=== PATIENT | female | born 1980 | race Caucasian/White ===

== ENCOUNTER 2018-06-19 08:13 | Emergency (ER) | payer BC, SELFPAY ==
[2018-06-19 08:19] VITALS: BP 145/90; PULSE 67; RESP 14; TEMP 36.8; O2SAT 100
--- NOTE | 2018-06-19 08:33 | W.ED.GENAD ---
Discharge Plan Disposition Patient Disposition: HOME Condition: Stable Discharge Details Chief Complaint: EarProblem Clinical Impression: Otitis media, Sinus infection Primary Care Provider: iMssy Childress ED Provider: Carla Dillon Home Meds and New Rx's Prescriptions: New azithromycin [Zithromax Z-Augusto] 250 mg tablet See Rx Instructions .ROUTE .COMPLEX Qty: 6 RF: 0 Discharge Instructions Instructions: Sinusitis (ED), Otitis Media (ED) Additional Instructions: Alternate Tylenol and Motrin as needed and directed for pain. Take the antibiotics until finished. Drink plenty of fluids and get plenty of rest. Follow-up with your primary care doctor in 1 week for reevaluation. Return immediately to the emergency department any worsening or new concerning symptoms. Discharge Data Discharge Date/Time-TO BE ENTERED AT DEPARTURE: 06/19/18 09:07 Discharge Physician: Carla Dillon Medical Decision Making 37-year-old female who presents with nasal congestion, nasal discharge, sinus congestion and pain for the past week, and right ear pain since last night. Main complaint at this time is right ear pain. She recently had a cough but this is resolving and she denies any chest pain, shortness of breath, fever, vomiting or diarrhea. Blood pressure mildly hypertensive, otherwise vitals within normal limits. Afebrile. Patient appears nontoxic and in no acute distress. Her right TM is erythematous and dull. She has mild bilateral frontal sinus tenderness otherwise remainder of ENT exam within normal limits. No submandibular swelling, trismus, drooling. Lungs clear to auscultation. Patient is allergic to penicillin which causes hives and throat swelling. Urine is negative. Will treat with Zithromax to cover for mainly the ear and possibly sinus. Patient instructed to follow with primary care doctor for reevaluation and return here if worse. Medical Records Medical records reviewed: Yes I reviewed the patient's medical records. Lab Data Lab results reviewed: Yes I reviewed the patient's lab results. Urine test negative HPI General Mode of arrival: ambulatory. Date/Time Provider Initiated Documentation: 06/19/18 08:24. Limitations to Documentation: no limitations. Information obtained by: patient. HPI Narrative: Patient is a 37-year-old female presents the ED with complaint of right ear pain since last night. Patient states her symptoms started with headache, fatigue, nasal congestion, facial pain and nasal discharge 1 week ago but states this is slightly improving and now has mainly R ear pain. She also had a cough with chest congestion but this is now improving with Robitussin. She denies known fever, body aches, vomiting, diarrhea, chest pain, shortness of breath. She took 2 Tylenol this morning for pain with some relief. She did not receive a flu shot this year. Related Data Home Medications Medication Instructions Recorded Confirmed azithromycin [Zithromax Z-Augusto] See Rx Instructions .ROUTE 06/19/18 .COMPLEX #6 tab Previous Rx's Medication Instructions Recorded azithromycin [Zithromax Z-Augusto] See Rx Instructions .ROUTE 06/19/18 .COMPLEX #6 tab Allergies Allergy/AdvReac Type Severity Reaction Status Date / Time orange juice AdvReac Severe Hives Unverified 06/19/18 08:21 Penicillins AdvReac Severe Hives Unverified 06/19/18 08:21 acetaminophen AdvReac Mild vomits Unverified 06/19/18 08:21 [From Tylenol-Codeine #3] codeine phosphate AdvReac Mild vomits Unverified 06/19/18 08:21 [From Tylenol-Codeine #3] General Stated Complaint: EarProblem VADIM: 4 Review of Systems Review of Systems All systems reviewed & are unremarkable except as noted in HPI and below Constitutional Reports as per HPI, Denies chills and Denies fever(s) Eyes Denies blurry vision ENT Denies dizziness, Denies ear discharge, Reports otalgia, Reports nasal congestion, Reports nasal discharge, Denies sore throat and Denies throat swelling Cardiovascular Denies chest pain and Denies dyspnea Respiratory Denies cough and Denies dyspnea Gastrointestinal Denies abdominal pain, Denies diarrhea and Denies vomiting Genitourinary Denies hematuria and Denies dysuria Musculoskeletal Denies back pain and Denies numbness Integumentary/Breasts Denies lesions and Denies rash Neurologic Denies dizziness, Denies focal weakness and Denies numbness Allergic/Immunologic Denies throat swelling [facility] Medical History No significant past medical history (Acute) Surgical History History of knee surgery (Acute) Social History Smoking and Tabacco status: Never alcohol intake: never substance use type: does not use Exam Const General: cooperative, healthy appearing and no acute distress HENMT Head: normal to inspection Ears: hearing grossly normal bilaterally, TM abnormal dull on the right and erythematous on the right and other (L TM normal to inspection) General nose exam: external nose normal Face and sinus: sinus tenderness frontal (bilateral) Mouth: oral mucosae normal Teeth and gingiva: dentition normal Throat: posterior oropharynx normal Eyes General: appearance normal, both eyes and all related structures Neck Neck: normal visual inspection Resp Effort & Inspection: normal respiratory effort and able to speak in complete sentences Auscultation: clear to auscultation bilaterally, no rales, no rhonchi and no wheezes Cardio Rate: regular rate Rhythm: regular rhythm Skin General skin exam: no rashes or lesions noted Neuro General: alert, awake and oriented x3 Motor: muscle tone normal throughout Extrem General: normal to inspection and full ROM Psych Appearance: grossly normal Affect: normal affect Course Vital Signs Temperature 98.2 F 06/19/18 08:19 Pulse 67 06/19/18 08:19 Respiratory Rate 14 06/19/18 08:19 Blood Pressure 145/90 H 06/19/18 08:19 Pulse Oximetry 100 06/19/18 08:19 Temperature 98.2 F 06/19/18 08:19 Temperature Source Skin 06/19/18 08:19 Pulse 67 06/19/18 08:19 Respiratory Rate 14 06/19/18 08:19 Respiratory Effort 06/19/18 08:23 Blood Pressure 145/90 H 06/19/18 08:19 Pulse Oximetry 100 06/19/18 08:19 Oxygen Delivery Method Room Air 06/19/18 08:19 Oxygen Flow Rate 0 06/19/18 08:19 Pain Level 8 06/19/18 08:19
--- NOTE | 2018-06-19 08:41 | ED.GENADUL_ITS ---
Discharge Plan Disposition Patient Disposition: HOME Condition: Stable Discharge Details Chief Complaint: EarProblem Clinical Impression: Otitis media, Sinus infection Primary Care Provider: Missy Childress ED Provider: Carla Dillon Home Meds and New Rx's Prescriptions: New azithromycin [Zithromax Z-Augusto] 250 mg tablet See Rx Instructions .ROUTE .COMPLEX Qty: 6 RF: 0 Discharge Instructions Instructions: Sinusitis (ED), Otitis Media (ED) Additional Instructions: Alternate Tylenol and Motrin as needed and directed for pain. Take the antibiotics until finished. Drink plenty of fluids and get plenty of rest. Follow-up with your primary care doctor in 1 week for reevaluation. Return immediately to the emergency department any worsening or new concerning symptoms. Discharge Data Discharge Date/Time-TO BE ENTERED AT DEPARTURE: 06/19/18 09:07 Discharge Physician: Carla Dillon Medical Decision Making 37-year-old female who presents with nasal congestion, nasal discharge, sinus congestion and pain for the past week, and right ear pain since last night. Main complaint at this time is right ear pain. She recently had a cough but this is resolving and she denies any chest pain, shortness of breath, fever, vomiting or diarrhea. Blood pressure mildly hypertensive, otherwise vitals within normal limits. Afebrile. Patient appears nontoxic and in no acute distress. Her right TM is erythematous and dull. She has mild bilateral frontal sinus tenderness otherwise remainder of ENT exam within normal limits. No submandibular swelling, trismus, drooling. Lungs clear to auscultation. Patient is allergic to penicillin which causes hives and throat swelling. Urine is negative. Will treat with Zithromax to cover for mainly the ear and possibly sinus. Patient instructed to follow with primary care doctor for reevaluation and return here if worse. Medical Records Medical records reviewed: Yes I reviewed the patient's medical records. Lab Data Lab results reviewed: Yes I reviewed the patient's lab results. Urine test negative HPI General Mode of arrival: ambulatory . Date/Time Provider Initiated Documentation: 06/19/18 08:24 . Limitations to Documentation: no limitations . Information obtained by: patient . HPI Narrative: Patient is a 37-year-old female presents the ED with complaint of right ear pain since last night. Patient states her symptoms started with headache, fatigue, nasal congestion, facial pain and nasal discharge 1 week ago but states this is slightly improving and now has mainly R ear pain. She also had a cough with chest congestion but this is now improving with Robitussin. She denies known fever, body aches, vomiting, diarrhea, chest pain, shortness of breath. She took 2 Tylenol this morning for pain with some relief. She did not receive a flu shot this year. Related Data Home Medications Medication Instructions Recorded Confirmed azithromycin [Zithromax Z-Augusto] See Rx Instructions .ROUTE 06/19/18 .COMPLEX #6 tab Previous Rx's Medication Instructions Recorded azithromycin [Zithromax Z-Augusto] See Rx Instructions .ROUTE 06/19/18 .COMPLEX #6 tab Allergies Allergy/AdvReac Type Severity Reaction Status Date / Time orange juice AdvReac Severe Hives Unverified 06/19/18 08:21 Penicillins AdvReac Severe Hives Unverified 06/19/18 08:21 acetaminophen AdvReac Mild vomits Unverified 06/19/18 08:21 [From Tylenol-Codeine #3] codeine phosphate AdvReac Mild vomits Unverified 06/19/18 08:21 [From Tylenol-Codeine #3] General Stated Complaint: EarProblem VADIM: 4 Review of Systems Review of Systems All systems reviewed & are unremarkable except as noted in HPI and below Constitutional Reports as per HPI, Denies chills and Denies fever(s) Eyes Denies blurry vision ENT Denies dizziness, Denies ear discharge, Reports otalgia, Reports nasal congestion, Reports nasal discharge, Denies sore throat and Denies throat swelling Cardiovascular Denies chest pain and Denies dyspnea Respiratory Denies cough and Denies dyspnea Gastrointestinal Denies abdominal pain, Denies diarrhea and Denies vomiting Genitourinary Denies hematuria and Denies dysuria Musculoskeletal Denies back pain and Denies numbness Integumentary/Breasts Denies lesions and Denies rash Neurologic Denies dizziness, Denies focal weakness and Denies numbness Allergic/Immunologic Denies throat swelling [facility] Medical History No significant past medical history (Acute) Surgical History History of knee surgery (Acute) Social History Smoking and Tabacco status: Never alcohol intake: never substance use type: does not use Exam Const General: cooperative, healthy appearing and no acute distress HENMT Head: normal to inspection Ears: hearing grossly normal bilaterally, TM abnormal dull on the right and erythematous on the right and other (L TM normal to inspection) General nose exam: external nose normal Face and sinus: sinus tenderness frontal (bilateral) Mouth: oral mucosae normal Teeth and gingiva: dentition normal Throat: posterior oropharynx normal Eyes General: appearance normal, both eyes and all related structures Neck Neck: normal visual inspection Resp Effort & Inspection: normal respiratory effort and able to speak in complete sentences Auscultation: clear to auscultation bilaterally, no rales, no rhonchi and no wheezes Cardio Rate: regular rate Rhythm: regular rhythm Skin General skin exam: no rashes or lesions noted Neuro General: alert, awake and oriented x3 Motor: muscle tone normal throughout Extrem General: normal to inspection and full ROM Psych Appearance: grossly normal Affect: normal affect Course Vital Signs Temperature 98.2 F 06/19/18 08:19 Pulse 67 06/19/18 08:19 Respiratory Rate 14 06/19/18 08:19 Blood Pressure 145/90 H 06/19/18 08:19 Pulse Oximetry 100 06/19/18 08:19 Temperature 98.2 F 06/19/18 08:19 Temperature Source Skin 06/19/18 08:19 Pulse 67 06/19/18 08:19 Respiratory Rate 14 06/19/18 08:19 Respiratory Effort 06/19/18 08:23 Blood Pressure 145/90 H 06/19/18 08:19 Pulse Oximetry 100 06/19/18 08:19 Oxygen Delivery Method Room Air 06/19/18 08:19 Oxygen Flow Rate 0 06/19/18 08:19 Pain Level 8 06/19/18 08:19
[2018-06-19 09:09] VITALS: BP 145/90; PULSE 67; RESP 14; TEMP 36.8; O2SAT 100
== END 2018-06-19 09:07 | disposition home or self-care (01) ==
PROVIDERS: Emergency Provider Physician Assistant; PCP Nurse Practitioner Family
DX: H66.91 Otitis media, unspecified, right ear (principal); J01.90 Acute sinusitis, unspecified
CPT/HCPCS: 81025; 99283

== ENCOUNTER 2021-01-27 09:26 | Outpatient (REF) | payer BC, SELFPAY ==
[2021-01-27 20:16] LABS: MCH 29.8 pg (27.0-33.0); MCHC 31.1 % (32.0-36.0); MCV 95.7 fL (80-95); MPV 11.6 fL (8.0-11.0); Platelet Count 186 10^3/uL (130-400); RDW 14.3 % (11.7-14.6); RDW-SD 50.5 fL; WBC 2.92 10^3/uL (4.4-10.8)
[2021-01-27 20:29] LABS: ALT 22 U/L (14-59); AST 21 U/L (15-37); Albumin 3.6 g/dL (3.4-5.0); Alkaline Phosphatase 114 U/L (46-116); Anion Gap 6.6 mmol/L (3-11); BUN 11 mg/dL (7-18); Bilirubin, Total 0.5 mg/dL (0.2-1.0); CO2 28.4 mmol/L (21.0-32.0); Calcium 8.9 mg/dL (8.5-10.1); Chloride 108 mmol/L (98-107); Glucose 88 mg/dL (74-106); Potassium 4.3 mmol/L (3.5-5.1); Sodium 143 mmol/L (136-145)
== END 2021-01-27 09:27 | disposition home or self-care (01) ==
LOC: NCHCN 09:26
PROVIDERS: PCP Nurse Practitioner Family; Visit Provider Nurse Practitioner Family
DX: Z00.00 Encounter for general adult medical examination without abnormal findings (principal)
CPT/HCPCS: 80053; 85027

== ENCOUNTER 2022-10-20 11:13 | Outpatient (REF) | payer SELFPAY ==
[2022-10-21 10:27] LABS: ALT 26 U/L (14-59); AST 31 U/L (15-37); Albumin 3.9 g/dL (3.4-5.0); Alkaline Phosphatase 135 U/L (46-116); Anion Gap 12.3 mmol/L (3-11); BUN 15 mg/dL (7-18); Bilirubin, Total 0.4 mg/dL (0.2-1.0); CO2 24.7 mmol/L (21.0-32.0); CREATININE 1.1 mg/dL (0.55-1.02); Chloride 102 mmol/L (98-107); Estimated GFR 64.34 (mL/min/1.73m2); Glucose 76 mg/dL (74-106); Potassium 4.1 mmol/L (3.5-5.1); Sodium 139 mmol/L (136-145)
[2022-10-21 10:28] LABS: Abs Immature Grans 0.01 10^3/uL (0.0-0.06); Absolute Basophil Count 0.05 10^3/uL (0.0-0.2); Absolute Eosinophil Count 0.17 10^3/uL (0.0-0.7); Absolute Lymphocyte Count 1.24 10^3/uL (1.2-3.4); Absolute Monocyte Count 0.29 10^3/uL (0.1-0.8); Basophils % 1.3; Eosinophils % 4.5; HCT 46.1 % (36.0-46.0); HGB 14.8 g/dL (11.2-15.7); Immature Grans % 0.3; MCH 30.5 pg (27.0-33.0); MCHC 32.1 % (32.0-36.0); MCV 95 fL (80-95); MPV 11.7 fL (8.0-11.0); Monocytes % 7.7; Neutrophils % 53.2; Platelet Count 242 10^3/uL (130-400); RBC 4.86 10^6/uL (3.93-5.22); RDW 13.8 % (11.7-14.6); RDW-SD 48.8 fL; WBC 3.76 10^3/uL (4.4-10.8)
== END 2022-10-20 11:14 | disposition home or self-care (01) ==
LOC: NCHCN 11:13
PROVIDERS: PCP Nurse Practitioner Family; Visit Provider Nurse Practitioner Family
DX: R10.13 Epigastric pain (principal)
CPT/HCPCS: 80053; 85025

== ENCOUNTER 2023-04-06 13:36 | Outpatient (REF) | payer SELFPAY ==
[2023-04-06 17:18] LABS: FREE T4 1.21 ng/dL (0.76-1.46); TSH 6.14 uIU/mL (0.36-3.74)
[2023-04-06 17:20] LABS: Hemoglobin A1C 5.3 % (<5.7)
[2023-04-06 17:41] LABS: Calculated LDL 163 mg/dL (<100); Cholesterol 266 mg/dL (<200); HDL Cholesterol 91 mg/dL (40-60); Triglyceride 62 mg/dL (<150)
== END 2023-04-06 13:37 | disposition home or self-care (01) ==
LOC: NCHCN 13:36
PROVIDERS: PCP Nurse Practitioner Family; Visit Provider Nurse Practitioner Family
DX: E04.9 Nontoxic goiter, unspecified (principal); R63.1 Polydipsia; Z13.220 Encounter for screening for lipoid disorders
CPT/HCPCS: 80061; 83036; 84439; 84443

== ENCOUNTER 2023-09-20 18:24 | Outpatient (REF) | payer BC, SELFPAY ==
--- NOTE | 2023-09-20 12:40 | PAPFT_PTH ---
PATIENT: Wendy Nava LOC: [facility]#:[id number] AGE/SX: 42/F ROOM: RE09/20/[address]: Rossana Logan : 1980 BED: DIS: 09/20/2023 SPEC #: [id number] RECD: 09/21/23 12:59 STATUS: JAG REQ #: [id number] MINDA: 09/20/23 12:[address]: Rossana Logan DEPT: [facility] [place] Cytology RECD BY: Rosemarie Melendez ENTERED: 09/21/23 12:59 SP TYPE: PAPFT LEONOR DR: Unknown,Unknown Tissues: 1 - CX/ENDOCX FOR PAP SMEARS Procedures: PAP THIN PREP/[facility] Screening HPV DNA PROBE Comments: [id number] (HPV 16 & 18/45)
== END 2023-09-20 18:25 | disposition home or self-care (01) ==
LOC: NCHCN 18:24
PROVIDERS: Visit Provider Nurse Practitioner Family
DX: Z11.51 Encounter for screening for human papillomavirus (HPV) (principal); Z01.419 Encounter for gynecological examination (general) (routine) without abnormal findings
CPT/HCPCS: 88142; 87624

== ENCOUNTER 2024-11-23 05:00 | Emergency (ER) | payer OTHER, SELFPAY ==
[2024-11-23 05:02] VITALS: BP 169/91; PULSE 66; RESP 20; TEMP 37; O2SAT 100
--- NOTE | 2024-11-23 05:15 | DI.RAD_ITS ---
Exam(s) XR LUMBAR SPINE COMPLETE EXAM: XR LUMBAR SPINE COMPLETE CLINICAL HISTORY: midline lower lumbar back pain. TECHNIQUE: 2D digital imaging was performed. COMPARISON: No exams were available for comparison FINDINGS: Five views. There is no evidence of fracture, listhesis, nor pars interarticularis defects. It is noted that there is variant anatomy here with sacralization of the L5 segment, this resulting in a rudimentary L5-S1 disc space. There is mild narrowing of the L4-5 disc space. Other disc spaces above this level appear unremarkable as do the facet joints. Sacroiliac joints appear unremarkable. IMPRESSION: No acute osseous findings. However, there is sacralization of L5 segment and mild narrowing of the L4-5 disc space. Sacralization L5 segment is known to result in increased stress upon the L4-5 disc space, resulting in higher incidence of disc herniations. If clinically indicated follow-up nonemergent lumbar spine MRI can be performed. DATA REPOSITORY: RADIATION DOSE DELIVERED:
[2024-11-23] MEDS: Ketorolac 30 MG/ML VIAL IM (05:24)
[2024-11-23] MEDS: predniSONE 20 MG TAB 60 MG PO (05:24)
[2024-11-23] MEDS: Methocarbamol 500 MG TAB 1000 MG PO (05:24)
--- NOTE | 2024-11-23 05:50 | W.ED.GENAD ---
Discharge Plan Disposition Patient Disposition: Home Condition: Good Discharge Details Clinical Impression: Lumbar back pain Primary Care Provider: Mikayla,Local ED Provider: Alfredo Espinoza Home Meds and New Rx's Prescriptions: New cyclobenzaprine 10 mg tablet 10 mg PO TID Qty: 14 0RF prednisone 50 mg tablet 50 mg PO DAILY Qty: 5 0RF lidocaine [Lidoderm] 5 % adhesive patch,medicated 1 patch Topical Q24H Qty: 15 0RF No Action azithromycin [Zithromax Z-Augusto] 250 mg tablet See Rx Instructions .ROUTE .COMPLEX Qty: 6 0RF Rx Instructions: take 500 mg today (day 1), then 250 mg for 4 days (days 2-5) acetaminophen 500 mg capsule 1,000 mg PO Q6H PRN Discharge Instructions Instructions: Low Back Pain ED Additional Instructions: At this time your signs and symptoms are clinically consistent with a back sprain. This can cause significant pain and take a fair bit of time to heal. I expect 1 to 2 months for potential resolution. In the meantime do not lift anything greater than 5 pounds for the next 2 weeks. Avoid any significant vigorous physical activity. Perform easy gentle regular activities at home without any significant bending or lifting. Please take the steroids as directed. You have been given a prescription for Lidoderm patch. If your insurance does not cover this you can get [id number] Lidoderm patches at 4% which are almost just as effective. Please take the Flexeril as directed but do not take it when driving or operating any vehicles or heavy machinery, swimming, taking long baths, or operating firearms. Please use a heating pad as often as possible on your back. Perform daily gentle stretches on your back. Please continue to take the Tylenol and Motrin. You can take 1000 mg of Tylenol every 6 hours and 600 mg of ibuprofen every 6 hours. If you notice any worsening of your symptoms, or any new symptoms such as vomiting, diarrhea, fever, chills, shortness of breath, chest pain, numbness or tingling in your groin or legs, weakness in your legs, loss of control for your bowels or bladder, or fainting , please return immediately to the emergency department for reevaluation. Please follow up with your primary care provider as soon as possible for reassessment and reevaluation. As always, it was a pleasure participating in your medical care today. Stand Alone Forms: Work Release HPI General Date/Time Provider Initiated Documentation: 11/23/24 05:08. HPI Narrative: This is a pleasant 43-year-old female with a past medical history of prior knee surgery, currently with a BMI of 42, who presents today for evaluation of right lower back pain. Patient states that 2 days ago she carried a 50 pound vacuum down the stairs while rotated and slightly torqued and holding it out right. Since then she has had gradual achiness in the back that is worsened and worsened over the last 48 hours. Is primarily located in the right lower back. Worse with movement and bending. Improved slightly by Tylenol. No numbness or tingling. No fever or chills. No falls. No IV or illicit drug use. No urinary symptoms of dysuria or hematuria. Patient denies any saddle anesthesia, numbness or tingling in the groin, change in sensation when wiping. Patient denies any change in sensation during sexual intercourse, bowel or bladder incontinence, leakage, or retention. Patient denies any weakness in the lower extremities, atypical falls or imbalance. No other complaints at this time. Related Data Home Medications ?Medication ?Instructions ?Recorded ?Confirmed azithromycin 250 mg tablet See Rx Instructions PO .COMPLEX #6 06/19/18 11/23/24 (Zithromax Z-Augusto) tabs Held on 11/23/24. Instructions: Prescription Finished acetaminophen 500 mg capsule 1,000 mg PO Q6H PRN 11/23/24 11/23/24 cyclobenzaprine 10 mg tablet 10 mg PO TID #14 tabs 11/23/24 lidocaine 5 % topical patch 1 patch topical Q24H #15 ea 11/23/24 (Lidoderm) prednisone 50 mg tablet 50 mg PO DAILY #5 tabs 11/23/24 Previous Rx's ?Medication ?Instructions ?Recorded azithromycin 250 mg tablet See Rx Instructions PO .COMPLEX #6 06/19/18 (Zithromax Z-Augusto) tabs Held on 11/23/24. Instructions: Prescription Finished cyclobenzaprine 10 mg tablet 10 mg PO TID #14 tabs 11/23/24 lidocaine 5 % topical patch 1 patch topical Q24H #15 ea 11/23/24 (Lidoderm) prednisone 50 mg tablet 50 mg PO DAILY #5 tabs 11/23/24 Allergies Allergy/AdvReac Type Severity Reaction Status Date / Time orange juice AdvReac Severe Hives Unverified 11/23/24 05:06 Penicillins AdvReac Severe Hives Unverified 11/23/24 05:06 acetaminophen (From AdvReac Mild vomits Unverified 11/23/24 05:06 Tylenol-Codeine #3) codeine phosphate (From AdvReac Mild vomits Unverified 11/23/24 05:06 Tylenol-Codeine #3) General Stated Complaint: Nk/Back Pain VADIM: 3 Exam Narrative Exam Narrative: 1.Const: Well-nourished, Well-developed, appearing stated age 2.Eyes: PERRL, no conjunctival injection, and symmetrical lids. 3.ENT: Atraumatic external nose and ears. Moist MM. Neck: Symmetric, trachea midline, No thyromegaly. 4.CVS: +S1/S2, Peripheral pulses 2+ and equal in all extremities. Brisk capillary refill in all extremities. 5.RESP: Unlabored respiratory effort. Clear to auscultation bilaterally. No wheezes rales or rhonchi 6.GI: Soft, Nontender/Nondistended, No hepatosplenomegaly. No guarding or rebound. 7.MSK: Normocephalic/Atraumatic, Extremities w/o deformity or ttp No cyanosis or clubbing, Normal movement of all extremities No midline tenderness to palpation over the CTS spine. Patient does have mild midline tenderness over L4 and L5 as well as notable right paraspinal tenderness and right SI joint tenderness on palpation. Normal ROM in flexion, extension, side bend, and rotation. Patient has +5 out of 5 strength in the lower extremities in dorsiflexion and plantarflexion, knee flexion and extension, hip flexion and extension. Normal strength for dorsiflexion and plantar flexion of the great toe bilaterally. There is +2 over 2 dorsalis pedis pulses bilaterally. There is normal sensation to the skin with light touch at the foot, knee, and hip. Normal saddle sensation. Good sensation over the deep sural nerve area bilaterally. Rectal exam demonstrates good rectal tone with excellent rachel-rectal sensation. Reflexes are +2 over 4 in the patellar reflex bilaterally. +5 out of 5 strength in the medial, ulnar, radial nerve distribution bilaterally in the hands as well as intact light touch sensation to these dermatomes on the hands 8.Skin: Warm, Dry. No rashes or lesions. 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 Sensation grossly intact, no focal neurologic deficits. 10.Psych: (AAO) x3. Appropriate mood and affect Course Vital Signs Vital signs: Vital Signs Temperature 37.0 C 11/23/24 05:02 Pulse 66 11/23/24 05:02 Respiratory Rate 20 11/23/24 05:02 Blood Pressure 169/91 H 11/23/24 05:02 Pulse Oximetry 100 11/23/24 05:02 Temperature 37.0 C 11/23/24 05:02 Temperature Source Oral 11/23/24 05:02 Pulse 66 11/23/24 05:02 Respiratory Rate 20 11/23/24 05:02 Blood Pressure 169/91 H 11/23/24 05:02 Blood Pressure Position Sitting 11/23/24 05:02 Pulse Oximetry 100 11/23/24 05:02 Oxygen Delivery Method Room Air 11/23/24 05:02 Oxygen Flow Rate 0 11/23/24 05:02 Pain Level 10 11/23/24 05:02 Medical Decision Making This is a pleasant 43-year-old female with a past medical history of prior knee surgery, currently with a BMI of 42, who presents today for evaluation of right lower back pain. Patient states that 2 days ago she carried a 50 pound vacuum down the stairs while rotated and slightly torqued and holding it out right. Since then she has had gradual achiness in the back that is worsened and worsened over the last 48 hours. Is primarily located in the right lower back. Worse with movement and bending. Improved slightly by Tylenol. No numbness or tingling. No fever or chills. No falls. No IV or illicit drug use. No urinary symptoms of dysuria or hematuria. Patient denies any saddle anesthesia, numbness or tingling in the groin, change in sensation when wiping. Patient denies any change in sensation during sexual intercourse, bowel or bladder incontinence, leakage, or retention. Patient denies any weakness in the lower extremities, atypical falls or imbalance. No other complaints at this time. Exam demonstrates mild midline tenderness around L4 as well as notable right paraspinal tenderness at L4 and right SI joint tenderness. No red flags to suggest cauda equina syndrome, no saddle anesthesia or rectal incontinence. She has normal strength, normal patellar reflexes. She does not demonstrate evidence to suggest spinal epidural abscess. No IV or illicit drug use. No fevers. Symptoms appear consistent with mild right lower back sprain and paraspinal musculature irritation. However due to the midline tenderness we will get an x-ray to rule out acute fracture or bony tumor. Will evaluate the SI joint and right hip to make sure there is no evidence to suggest sclerosis of the hip or pelvis. Will treat with the pain with Toradol, Robaxin, prednisone. Will monitor closely and reassess. X-ray showed no evidence of significant abnormality. Patient's pain notably improved. Will give steroids, Lidoderm patch and NSAID therapy for home and muscle relaxants. Discussed red flags which to return. Symptoms consistent with mild back sprain. I have extensively reviewed the treatment plan and discharge instructions with the patient and their family. I have addressed all patient concerns at this time. The patient and family was made aware of what symptoms to monitor for that would warrant a return to the emergency department. Discussed the plan with the patient and family, they demonstrate verbal understanding and agreement with our assessment and plan at this time. The documentation in this chart was dictated using [employer] dictation software. Please excuse any dictation errors. FINDINGS: Bones/joints: There is no evidence of acute fracture.There is no evidence of malalignment or dislocation. Soft tissues: Unremarkable. IMPRESSION: There is no evidence of acute fracture.There is no evidence of malalignment or dislocation. Thank you for allowing us to participate in the care of your patient. Dictated and Authenticated by: Wagner Munoz MD FINDINGS: Bones/joints: There is no evidence of acute fracture.There is no evidence of malalignment or dislocation. Intervertebral disc spaces are narrowed L5/S1 consistent with degenerative disc disease. Soft tissues: Unremarkable. IMPRESSION: 1. There is no evidence of acute fracture.There is no evidence of malalignment or dislocation. 2. Intervertebral disc spaces are narrowed L5/S1 consistent with degenerative disc disease. Thank you for allowing us to participate in the care of your patient. Dictated and Authenticated by: Wagner Munoz MD 11/23/2024 7:16 AM Eastern Time ([place] & [place]) [facility] All Active Problems (Updated 11/23/24 @ 06:54 by Alfredo Espinoza DO) Lumbar back pain (Acute) Medical History (Updated 11/23/24 @ 06:54 by Alfredo Espinoza DO) No significant past medical history Surgical History History of knee surgery Social History Smoking/Tobacco Use Status: Never Smoking risk assessment performed?: Yes Alcohol Intake: never Drug use: Never Substance use type: does not use Housing: house Do you feel safe at home: Yes Do you feel safe in your relationship?: Yes
--- NOTE | 2024-11-23 05:52 | DI.RAD_ITS ---
Exam(s) XR HIP RT COMPLETE AP PELVIS EXAM: XR HIP RT COMPLETE AP PELVIS CLINICAL HISTORY: right hip and SI joint pain. TECHNIQUE: 2D digital imaging was performed. COMPARISON: No exams were available for comparison FINDINGS: 3 views There is no evidence of pelvic nor hip fracture. No hip joint space narrowing. No degenerative changes in the hip joints. Sacroiliac joints appear unremarkable. Bone density normal. No osseous lesions. IMPRESSION: No acute osseous findings in the pelvis and hips. DATA REPOSITORY: RADIATION DOSE DELIVERED:
--- NOTE | 2024-11-23 07:15 | DI.VRAD_ITS ---
PROCEDURE INFORMATION: Exam: XR Right Hip Exam date and time: 11/23/2024 5:37 AM Age: 43 years old Clinical indication: Hip pain; Right hip and si joint pain TECHNIQUE: Imaging protocol: Radiologic exam of the right hip. Views: 2 or 3 views hip with pelvis when performed. COMPARISON: No relevant prior studies available. FINDINGS: Bones/joints: There is no evidence of acute fracture.There is no evidence of malalignment or dislocation. Soft tissues: Unremarkable. IMPRESSION: There is no evidence of acute fracture.There is no evidence of malalignment or dislocation. Dictated and Authenticated by: Wagner Munoz MD. Orderin Olga Fuentes MD
--- NOTE | 2024-11-23 07:16 | DI.VRAD_ITS ---
PROCEDURE INFORMATION: Exam: XR Lumbosacral Spine Exam date and time: 11/23/2024 5:39 AM Age: 43 years old Clinical indication: Low back pain; Midline lower lumbar back pain TECHNIQUE: Imaging protocol: Radiologic exam of the lumbosacral spine. Views: 4 or 5 views. COMPARISON: CR XR HIP RT COMPLETE AP PELVIS 11/23/2024 5:37 AM FINDINGS: Bones/joints: There is no evidence of acute fracture.There is no evidence of malalignment or dislocation. Intervertebral disc spaces are narrowed L5/S1 consistent with degenerative disc disease. Soft tissues: Unremarkable. IMPRESSION: 1. There is no evidence of acute fracture.There is no evidence of malalignment or dislocation. 2. Intervertebral disc spaces are narrowed L5/S1 consistent with degenerative disc disease. Dictated and Authenticated by: Wagner Munoz MD. Orderin Olga Fuentes MD
[2024-11-23 07:25] VITALS: BP 170/104; PULSE 54; RESP 18; O2SAT 97
== END 2024-11-23 07:26 | disposition home or self-care (01) ==
PROVIDERS: Emergency Provider Student in an Organized Health Care Education/Training Program
DX: M54.50 Low back pain, unspecified (principal); E66.01 Morbid (severe) obesity due to excess calories; Z68.41 Body mass index [BMI] 40.0-44.9, adult
CPT/HCPCS: 96372; 99283; 72110; 73502; J1885; J7512

== ENCOUNTER 2024-12-17 12:01 | Outpatient (CLI) | payer OTHER, SELFPAY ==
--- NOTE | 2024-12-17 | DI.MAMMO_ITS ---
Exam(s) MAMMO SCREENING EXAM: MAMMO SCREENING CLINICAL HISTORY: SCREENING, Z12.31 TECHNIQUE: Bilateral full field digital CC and MLO mammographic images were obtained with 3D tomosynthesis and utilizing computer aided detection (CAD). COMPARISON: This is a baseline examination. There are no priors for comparison. FINDINGS: Masses/Architectural Distortion: No suspicious masses or areas of architectural distortion are present. Microcalcifications: No suspicious pleomorphic-type are seen. Skin Thickening/Nipple Retraction: None. IMPRESSION: 1. There is no evidence for malignancy at this time. 2. Unless there is more urgent need, screening mammography is recommended, as per [employer] guidelines. BI-RADS Category 1 - Negative Breast Density - Category A - The breast are almost entirely fatty. Breast density Category C or D implies that the patient has dense breast tissue. Dense breast tissue can make it harder to find cancer on a mammogram. Dense breast tissue is also associated with an increased risk of breast cancer. This information about the result of the mammogram report was provided to the patient to raise their awareness. Use this report when you speak with the patient about their risks for breast cancer, which includes their family history. At that time, you may recommend additional screening tests (Ultrasound or MRI) as these tests may add significant information. A negative radiographic report should not delay biopsy if a dominant or clinically suspicious mass is present. Up to ten percent of cancers are not identified on mammography. A negative report may reinforce clinical impression. Adenosis and dense breasts may obscure an underlying neoplasm. False positive reports average 6 to 10%. Patient will receive a letter notifying them of these results.
== END 2024-12-17 12:21 ==
LOC: DI 12:02
PROVIDERS: Visit Provider Family Medicine
DX: Z12.31 Encounter for screening mammogram for malignant neoplasm of breast (principal); R92.313 Mammographic fatty tissue density, bilateral breasts
CPT/HCPCS: 77063; 77067